=== PATIENT | female | born 1995 | race Hispanic/Latino ===

== ENCOUNTER 2024-06-13 13:09 | Emergency (ER) | payer SELFPAY ==
[~2024-06-13] VITALS: Ht 152.4 cm; Wt 52.8 kg
[2024-06-13 15:27] VITALS: PULSE 86; RESP 16; TEMP 99.5
[2024-06-13 16:06] VITALS: BP 112/75; RESP 18; O2SAT 100
== END 2024-06-13 15:53 | disposition home or self-care (01) ==
LOC: FSED 13:22
DX: O26.891 Other specified pregnancy related conditions, first trimester (principal); O34.81 Maternal care for other abnormalities of pelvic organs, first trimester; N83.202 Unspecified ovarian cyst, left side; R10.2 Pelvic and perineal pain
CPT/HCPCS: 76801; 76830; 80053; 81003; 81025; 85025; 99283